=== PATIENT | female | born 1960 | race Caucasian/White ===

== ENCOUNTER → 2016-07-22 | Outpatient (CLI) | payer MEDICAID ==
[~2016-07-22] MED LIST: ATOR10TA9 PO; BENZ1TAB61 PO; ESCI10TA PO; ESCI5TAB PO; GABA-827 PO; LISI-170 PO; PRAZ1CAP2 PO; PROP10TA PO; RAME8TAB8 PO; RANI300C PO; ZIPR40CA3 PO
== END | disposition home or self-care (01) ==
LOC: CFH 12:02 → EDSTATUS 16:00
PROVIDERS: ATTEND Nurse Practitioner
DX: R91.8 Other nonspecific abnormal finding of lung field (principal); J43.8 Other emphysema; K44.9 Diaphragmatic hernia without obstruction or gangrene
CPT/HCPCS: 71250

== ENCOUNTER → 2017-02-24 | Outpatient (CLI) | payer MEDICAID ==
[~2017-02-24] MED LIST changes: +RAME8TAB19 PO; -RAME8TAB8 PO
== END ==
LOC: CFH 15:37
PROVIDERS: ATTEND Registered Nurse
DX: J43.9 Emphysema, unspecified (principal); R91.8 Other nonspecific abnormal finding of lung field
CPT/HCPCS: 71250